=== PATIENT | female | born 1950 | race Caucasian/White ===

== ENCOUNTER 2021-02-27 11:23 | Emergency (ER) | payer OTHER ==
[~2021-02-27] VITALS: Ht 162.6 cm; Wt 61.2 kg
--- NOTE | ~2021-02-27 | EMS ---
[facility] [address] [place] [address] EMS Patient Care Report Name: GUILLERMO MIXON Room #: REG Wendy#: [id number] Admission: 02/27/21 Attend Phys: Discharge: Date of : 54 Report #: [id number] THIS REPORT FOR: //name// Report Transmitted: 02/27/2021 12:20 EMS Care Summary [place], [place]/[facility] Incident [id number] @ 02/27/2021 11:02 Incident Location [facility] ETELVINA CASTRO Patient GUILLERMO SEGOVIA Female, 70 Years 1950 Patient Address [address] [place], [place] [address] [address] [address] Patient History Chronic Obstructive Pulmonary Disease (COPD),Kidney/Renal Failure,Hypotension,Hypothyroidism,Chronic Kidney Disease, Patient Allergies No known allergies, Patient Medications Metoprolol, Lasix, Heparin, Lisinopril, Chief Complaint Dialysis Shunt Hemorrhage Disposition Transported No Lights/[place] Dispatch Reason Hemorrhage/Laceration Transported To [facility] Narrative M42 dispatched for a 70 year old female conscious and breathing that is bleeding from the dialysis shunt. Arrival at the scene patient acknowledges EMS [facility] [address] [place] [address] EMS Patient Care Report Name: GUILLERMO MIXON Room #: JOSIAH Nguyen#: [id number] Admission: 02/27/21 Attend Phys: Discharge: Date of : 54 Report #: [id number] presence is GCS 15, AAOx4. Patient has a patent airway is breathing adequately with strong regular radial pulses. Skin is pink warm and dry. Clamp is noted to the right bicep over the fistula. Bleeding is controlled. VS are obtained and WNL. Staff advises that the patient is to go to [facility] for further evaluation. Patient is placed on the stretcher and secured using seatbelts and rails. Patient is wheeled to the ambulance and transport is initiated. Assessment conducted is unremarkable. Arrival at the receiving facility patient is offloaded and taken to ED hallway bed. RN is given report and signatures are obtained. Transfer of care is completed and M42 returns to service. Initial Vitals @11:11P: 72,R: 16,BP: 133/84,Pain: 0/10,SpO2: 96, @11:20P: 68,R: 18,BP: 138/86,Pain: 0/10,GCS: 15,SpO2: 99,Revised Trauma: 12, Assessments @11:12MENTAL:No Abnormalities,SKIN:No Abnormalities,HEENT:Head/Face: No Abnormalities,Eyes: No Abnormalities,Neck/Airway: No Abnormalities,LUNG SOUNDS:General: No Abnormalities,Left Upper: No Abnormalities,Right Upper: No Abnormalities,Left Lower: No Abnormalities,Right Lower: No Abnormalities,ABDOMEN:General: No Abnormalities,Left Upper: No Abnormalities,Right Upper: No Abnormalities,Left Lower: No Abnormalities,Right Lower: No Abnormalities,PELVIS//GI:No Abnormalities,EXTREMITIES:Left Arm: No Abnormalities,Right Arm: No Abnormalities,Left Leg: No Abnormalities,Right Leg: No Abnormalities,PULSE:Radial: 2+ Normal,NEURO:No Abnormalities, Impression Hemorrhage Procedures @11:12 ALS Assessment Response: UnchangedSucceeded Timeline 11:00,Call Received 11:00,Dispatch Notified 11:02,Dispatched 11:03,En Route 11:10,On Scene 11:11,At Patient 11:11,BP: 133/84 M,PULSE: 72,RR: 16 R,SPO2: 96 Ox,ETCO2: ,BG: ,PAIN: 0,GCS: , 11:12,ALS Assessment,Response: UnchangedSucceeded, 11:19,[place] [address] EMS Patient Care Report Name: GUILLERMO MIXON Room #: REG [facility].#: [id number] Admission: 02/27/21 Attend Phys: Discharge: Date of : 54 Report #: [id number] 11:20,BP: 138/86 M,PULSE: 68,RR: 18 R,SPO2: 99 Ox,ETCO2: ,BG: ,PAIN: 0,GCS: 15, 11:25,At Destination 11:35,Call Closed Disclaimer v1.1 Copyright 2020 [employer] This EMS Care Summary contains data elements from the applicable legal record (which may be displayed differently). It is designed to provide pertinent information for the following purposes: continuity of care, clinical quality, and state data reporting. The complete legal record is available to ED staff and administrators of the receiving hospital in [facility]'s Patient Tracker. All data is provided "as is."
[2021-02-27 18:48] VITALS: BP 154/76
== END 2021-02-27 18:49 | disposition home or self-care (01) ==
LOC: ER 11:23
DX: T82.838A Hemorrhage due to vascular prosthetic devices, implants and grafts, initial encounter (principal); Y92.89 Other specified places as the place of occurrence of the external cause